=== PATIENT | male | born 1940 | race Caucasian/White ===

== ENCOUNTER 2021-02-08 12:05 | Day surgery (SDC) | payer MEDICARE ==
[2021-02-03 12:05] LABS: ANION GAP 6 (8-16); BASOPHILS # (AUTO) 0.1 X10'3 (0-0.2); BASOPHILS % (AUTO) 1.2 % (0-1); BLOOD UREA NITROGEN 30 MG/DL (7-18); BUN/CREATININE RATIO 13.7 (5.4-32.0); CALCIUM 9.3 MG/DL (8.5-10.1); CHLORIDE 103 MMOL/L (99-107); CREATININE 2.19 MG/DL (0.60-1.10); EOSINOPHILS # (AUTO) 0.2 X10'3 (0-0.9); EOSINOPHILS % (AUTO) 2.6 % (0-6); GLUCOSE 225 MG/DL (70-104); HEMATOCRIT 38.6 % (42.0-52.0); HEMOGLOBIN 12.9 g/dl (14.0-17.9); LYMPHOCYTES # (AUTO) 1.6 X10'3 (1.1-4.8); LYMPHOCYTES % (AUTO) 18.2 % (21-51); MEAN CORPUSCULAR HEMOGLOBIN 32.3 PG (27.0-31.0); MEAN CORPUSCULAR HGB CONC 33.5 g/dL (33.0-36.5); MEAN CORPUSCULAR VOLUME 96.7 FL (78-98); MEAN PLATELET VOLUME 8.1 FL (7.4-10.4); MONOCYTES # (AUTO) 0.7 X10'3 (0-0.9); MONOCYTES % (AUTO) 8.1 % (2-12); NEUTROPHILS # (AUTO) 6.1 X10'3 (1.8-7.7); NEUTROPHILS % (AUTO) 69.9 % (42-75); PLATELET COUNT 167 X10'3 (140-440); RED CELL DISTRIBUTION WIDTH 14.7 % (11.5-14.5); SODIUM 138 MMOL/L (135-145); TOTAL CARBON DIOXIDE 29.2 MMOL/L (24-32); WHITE BLOOD COUNT 8.7 X10'3 (4.5-11.0); eGFR 29 ML/MIN
[2021-02-03 12:19] LABS: POTASSIUM 6.6 MMOL/L (3.5-5.1)
[2021-02-03 12:31] LABS: PARTIAL THROMBOPLASTIN TIME 28 SECONDS (22-32)
[~2021-02-08] VITALS: Ht 172.7 cm; Wt 81.5 kg
[2021-02-08] VITALS (10 sets, daily range): BP systolic 113–163; BP diastolic 45–85
[2021-02-08] MEDS ORDERED: LORazepam 0.5 MG tablet PO PRN (12:40)
[2021-02-08] MEDS ORDERED: normal saline 1,000 ML IV SCH (12:40)
[2021-02-08] MEDS ORDERED: diphenhydrAMINE 25mg capsule PO PRN (12:40)
[2021-02-08 13:07] LABS: ANION GAP 9 (8-16); BLOOD UREA NITROGEN 42 MG/DL (7-18); BUN/CREATININE RATIO 14.4 (5.4-32.0); CALCIUM 8.9 MG/DL (8.5-10.1); CHLORIDE 103 MMOL/L (99-107); CREATININE 2.92 MG/DL (0.60-1.10); GLUCOSE 160 MG/DL (70-104); POTASSIUM 5.3 MMOL/L (3.5-5.1); SODIUM 141 MMOL/L (135-145); TOTAL CARBON DIOXIDE 29.4 MMOL/L (24-32); eGFR 21 ML/MIN
[2021-02-08] MEDS ORDERED: GABA300C PO (13:21)
[2021-02-08] MEDS ORDERED: CARV3.122 PO (13:21)
[2021-02-08] MEDS ORDERED: IRBE150T51 PO (13:21)
[2021-02-08] MEDS ORDERED: TORS20TA3 PO (13:21)
[2021-02-08] MEDS ORDERED: CITA20TA28 PO (13:21)
[2021-02-08] MEDS ORDERED: CLOP75TA34 PO (13:21)
[2021-02-08] MEDS ORDERED: GLIP5TAB13 PO (13:21)
[2021-02-08] MEDS ORDERED: HYDR-3964 PO (13:21)
[2021-02-08] MEDS ORDERED: ASPI-611 PO (13:21)
[2021-02-08] MEDS ORDERED: ATOR20TA PO (13:21)
[2021-02-08] MEDS ORDERED: iohexol 350MG/ML 100ml bottle IV ONE (14:07)
[2021-02-08] MEDS ORDERED: heparin 1,000unit/ml 10ml vial 10 ML ONE (14:07)
[2021-02-08] MEDS ORDERED: nitroGLYCERIN-Tridil 50MG/D5W 250 ML IV ONE (14:07)
[2021-02-08] MEDS ORDERED: verapamil 2.5 mg/ml inj IV ONE (14:07)
[2021-02-08] MEDS ORDERED: LIDOcaine 1% (10mg/ml)w/preservative injection 20ml MDV ONE (14:07)
[2021-02-08] MEDS ORDERED: midazolam 1 mg/ML 2ml injection ONE (14:08)
[2021-02-08] MEDS ORDERED: fentaNYL/PF 50MCG/1 ML 2ML syringe ONE (14:08)
== END 2021-02-08 19:00 | disposition home or self-care (01) ==
LOC: SSTAY O 12:05
PROVIDERS: ATTEND Internal Medicine Interventional Cardiology
DX: I35.0 Nonrheumatic aortic (valve) stenosis (principal); I25.10 Atherosclerotic heart disease of native coronary artery without angina pectoris; E11.22 Type 2 diabetes mellitus with diabetic chronic kidney disease; I13.0 Hypertensive heart and chronic kidney disease with heart failure and stage 1 through stage 4 chronic kidney disease, or unspecified chronic kidney disease; N18.9 Chronic kidney disease, unspecified; I50.9 Heart failure, unspecified; Z86.73 Personal history of transient ischemic attack (TIA), and cerebral infarction without residual deficits; Z79.82 Long term (current) use of aspirin; Z79.01 Long term (current) use of anticoagulants; Z79.84 Long term (current) use of oral hypoglycemic drugs; Z79.899 Other long term (current) drug therapy; Z95.1 Presence of aortocoronary bypass graft; Z87.891 Personal history of nicotine dependence; Z82.49 Family history of ischemic heart disease and other diseases of the circulatory system; Z82.3 Family history of stroke; Z81.8 Family history of other mental and behavioral disorders
CPT/HCPCS: 36415; 80048; 82948; 85025; 85610; 85730; 93455; 99152; C1769; J1644; J2001; J2250; J3010; J7030; Q0163; Q9967; A4620; A6258; J3490

== ENCOUNTER 2021-02-28 08:47 | Outpatient (CLI) | payer MEDICARE ==
[~2021-02-28] VITALS: Ht 170.2 cm; Wt 84.4 kg
[~2021-02-28 08:47] MED LIST: ASPI-611 PO; ATOR20TA PO; CARV3.122 PO; CITA20TA28 PO; CLOP75TA34 PO; GABA300C PO; GLIP5TAB13 PO; HYDR-3964 PO; IRBE150T51 PO; TORS20TA3 PO
[2021-02-28] MEDS ORDERED: IODIXANOL 320 MG/ML INFUS..BTL 50ML IV ONE (09:17)
[2021-02-28] MEDS ORDERED: IODIXANOL 320 MG/ML INFUS..BTL 100ML IV ONE (09:18)
[2021-02-28 09:27] LABS: BASOPHILS # (AUTO) 0.1 X10'3 (0-0.2); BASOPHILS % (AUTO) 1.1 % (0-1); EOSINOPHILS # (AUTO) 0.3 X10'3 (0-0.9); EOSINOPHILS % (AUTO) 3.8 % (0-6); HEMOGLOBIN 12.3 g/dl (14.0-17.9); LYMPHOCYTES # (AUTO) 1.4 X10'3 (1.1-4.8); LYMPHOCYTES % (AUTO) 18.4 % (21-51); MEAN CORPUSCULAR HEMOGLOBIN 32.1 PG (27.0-31.0); MEAN CORPUSCULAR HGB CONC 33.2 g/dL (33.0-36.5); MEAN CORPUSCULAR VOLUME 96.8 FL (78-98); MEAN PLATELET VOLUME 7.9 FL (7.4-10.4); MONOCYTES # (AUTO) 0.6 X10'3 (0-0.9); NEUTROPHILS # (AUTO) 5.1 X10'3 (1.8-7.7); NEUTROPHILS % (AUTO) 68.7 % (42-75); PLATELET COUNT 161 X10'3 (140-440); RED BLOOD COUNT 3.82 X10'6 (4.70-6.10); RED CELL DISTRIBUTION WIDTH 14.3 % (11.5-14.5); WHITE BLOOD COUNT 7.5 X10'3 (4.5-11.0)
[2021-02-28 09:38] LABS: PARTIAL THROMBOPLASTIN TIME 26 SECONDS (22-32)
[2021-02-28 09:41] LABS: ALANINE AMINOTRANSFERASE 18 U/L (12-78); ALBUMIN/GLOBULIN RATIO 1.2 (1.1-1.5); ALKALINE PHOSPHATASE 84 IU/L (46-116); ANION GAP 11 (8-16); ASPARTATE AMINO TRANSFERASE 14 U/L (10-37); BILIRUBIN,TOTAL 0.5 MG/DL (0.1-1.0); BLOOD UREA NITROGEN 36 MG/DL (7-18); BUN/CREATININE RATIO 17.4 (5.4-32.0); CALCIUM 9.3 MG/DL (8.5-10.1); CHLORIDE 104 MMOL/L (99-107); CREATININE 2.07 MG/DL (0.60-1.10); GLUCOSE 216 MG/DL (70-104); SODIUM 143 MMOL/L (135-145); TOTAL CARBON DIOXIDE 27.9 MMOL/L (24-32); TOTAL PROTEIN 7.4 G/DL (6.4-8.2); eGFR 31 ML/MIN
[2021-02-28] MEDS ORDERED: albuterol 2.5 MG/3 ML nebule NEB ONE (10:10)
[2021-02-28 10:46] LABS: ABG BASE EXCESS -2.1 mmol/L (-2.0-2.0); ABG HCO3 23.5 mmol/L (22.0-26.0); ABG PCO2 (T) 43.3 mmHg (35.0-48.0); ABG PO2 (T) 70.8 mmHg (75.0-100.0); FCOHb 1.3 % (0.0-3.9); FMetHb 0.2 % (0.0-1.5); FO2Hb 92.6 % (94-97); TOTAL HEMOGLOBIN 13.2 G/dl (14.0-18.0)
== END 2021-02-28 23:59 | disposition home or self-care (01) ==
LOC: RT 08:47
PROVIDERS: ATTEND Internal Medicine Cardiovascular Disease
DX: K42.9 Umbilical hernia without obstruction or gangrene (principal); M47.819 Spondylosis without myelopathy or radiculopathy, site unspecified; M16.10 Unilateral primary osteoarthritis, unspecified hip; N40.0 Benign prostatic hyperplasia without lower urinary tract symptoms; N28.1 Cyst of kidney, acquired; K76.89 Other specified diseases of liver; I70.8 Atherosclerosis of other arteries; I70.0 Atherosclerosis of aorta; R91.1 Solitary pulmonary nodule; N62 Hypertrophy of breast; K44.9 Diaphragmatic hernia without obstruction or gangrene; J90 Pleural effusion, not elsewhere classified; I08.0 Rheumatic disorders of both mitral and aortic valves; R94.2 Abnormal results of pulmonary function studies; R09.02 Hypoxemia; Z20.822 Contact with and (suspected) exposure to COVID-19
CPT/HCPCS: 36415; 36600; 71046; 71275; 74174; 80053; 82803; 85018; 85025; 85610; 85730; 94010; 94727; 94729; Q9967; U0003